=== PATIENT | female | born 1935 | race Caucasian/White ===

== ENCOUNTER 2020-05-11 14:35 | Inpatient (IN) ==
[2020-05-11] MEDS ORDERED: 0.9 % Sodium Chloride 1,000 ML IVC ONE (14:55)
[2020-05-11 15:15] LABS: Basophils # 0.1 K/mcL (0.0-0.2); Basophils % 0.3 %; Eosinophils % 0.1 %; Hematocrit 42.9 % (35.3-44.9); Hemoglobin 13.8 g/dL (11.5-15.4); Immature Granulocytes % 0.9 % (0-4); Lymphocytes # 2.3 K/mcL (0.6-4.6); Lymphocytes % 14.3 %; Mean Corpuscular HGB Conc 32.2 g/dL (31.6-35.5); Mean Corpuscular Volume 93.3 fL (83.0-100.0); Mean Platelet Volume 9.6 fL (9.4-12.4); Monocytes # 1.6 K/mcL (0.0-1.3); Monocytes % 10.2 %; Neutrophils # 11.7 K/mcL (1.6-8.9); Nucleated Red Blood Cells 0.2 /100 WBC (0); Platelet Count 503 K/mcL (140-400); Red Cell Distribution Width 14.8 % (11.5-14.5); Segmented Neutrophils % 74.2 %; White Blood Count 15.8 K/mcL (4.3-11.1)
[2020-05-11] MEDS: DilTIAZem 50 MG/50 ML IV.SOLN IVC SCH ×2 (15:43→22:58)
[2020-05-11 15:50] LABS: Alanine Aminotransferase 26 Units/L (7-52); Albumin 2.9 g/dL (3.5-5.7); Alkaline Phosphatase 74 Units/L (34-104); Aspartate Amino Transferase 22 Units/L (13-39); BUN/Creatinine Ratio 19 (6-26); Bilirubin,Total 1.5 mg/dL (0.3-1.0); Blood Urea Nitrogen 19 mg/dL (8-23); Calcium 8.9 mg/dL (8.6-10.3); Carbon Dioxide 23 mEq/L (23-29); Chloride 103 mEq/L (98-107); Glucose 119 mg/dL (70-105); Osmolality,Calculated 281 (280-300); Sodium 134 mEq/L (136-145); Thyroid Stimulating Hormone 1.614 mcIU/mL (0.340-5.600); Troponin I < 0.03 ng/mL (< 0.04); eGFR For African Americans > 60 (> 60); eGFR For Non-African Americans 54 (> 60)
[2020-05-11 16:03] LABS: Bilirubin,Urine Small (Negative); Blood,Urine Negative (Negative); Clarity,Urine Turbid (Clear); Color,Urine Yellow (Yellow); Glucose,Urine (UA) Normal (Normal); Ketones,Urine Negative (Negative); Leukocyte Esterase,Urine Negative (Negative); Nitrite,Urine Negative (Negative); PH,Urine 5.5 pH Units (5.0-8.0); Protein,Urine Trace mg/dL (Neg-Trace); Specific Gravity,Urine 1.027 (1.010-1.025); Urobilinogen,Urine >=8.0 mg/dL (Normal)
[2020-05-11 16:15] LABS: Calcium Oxalate Crystals,Urine Present; Hyaline Casts,Urine Many per lpf (None Seen); Mucus,Urine Many per lpf (None-Few); RBC,Urine 0-3 per hpf (0-3); Squamous Epithelial Cell,Urine Many per hpf (None-Few)
[2020-05-11 16:17] LABS: Bacteria,Urine Few per hpf (None-Few)
[2020-05-11 16:59] LABS: Albumin/Globulin Ratio 0.7 (1.1-2.2); Globulin 3.9 g/dL (2.4-3.5); Total Protein 6.8 g/dL (6.4-8.9)
[2020-05-11] MEDS ORDERED: Naloxone 0.4 MG/ML INJ IVP PRN (17:10)
[2020-05-11] MEDS ORDERED: Perflutren Lipid Microsphere 1.3 ML in 0.9 % Sodium Chloride 8.7 ML IVP PRN (17:49)
[2020-05-11] MEDS ORDERED: *HR* Rivaroxaban 10 MG TABLET PO SCH (19:00)
[2020-05-11] MEDS: Gabapentin 100 MG CAPSULE PO SCH (19:29)
[2020-05-12 02:41] LABS: Basophils % 0.3 %; Eosinophils % 0.1 %; Hematocrit 40.5 % (35.3-44.9); Immature Granulocytes % 0.9 % (0-4); Lymphocytes % 14.7 %; Mean Corpuscular HGB Conc 32.1 g/dL (31.6-35.5); Mean Corpuscular Hemoglobin 30.6 pg (28.0-33.3); Mean Corpuscular Volume 95.3 fL (83.0-100.0); Mean Platelet Volume 10.3 fL (9.4-12.4); Monocytes # 1.6 K/mcL (0.0-1.3); Monocytes % 11.5 %; Nucleated Red Blood Cells 0.3 /100 WBC (0); Platelet Count 440 K/mcL (140-400); Red Blood Count 4.25 M/mcL (3.82-4.97); Red Cell Distribution Width 14.6 % (11.5-14.5); Segmented Neutrophils % 72.5 %; White Blood Count 13.9 K/mcL (4.3-11.1)
[2020-05-12 02:58] LABS: BUN/Creatinine Ratio 21 (6-26); Blood Urea Nitrogen 18 mg/dL (8-23); Calcium 8.6 mg/dL (8.6-10.3); Carbon Dioxide 22 mEq/L (23-29); Chloride 105 mEq/L (98-107); Chol/HDL Ratio 5.2 (0-4.9); Glucose 103 mg/dL (70-105); Magnesium 2.1 mg/dL (1.6-2.6); Osmolality,Calculated 284 (280-300); Phosphorous 2.9 mg/dL (2.7-4.5); Potassium 3.9 mEq/L (3.5-5.1); Sodium 136 mEq/L (136-145); eGFR For African Americans > 60 (> 60); eGFR For Non-African Americans > 60 (> 60)
[2020-05-12] MEDS: DilTIAZem 50 MG/50 ML IV.SOLN IVC SCH ×4 (03:18→19:25)
[2020-05-12 07:43] LABS: Estimated Average Glucose 123 mg/dl; Hemoglobin A1C 5.9 %
[2020-05-12] MEDS ORDERED: lisinopriL 20 MG TABLET PO SCH (09:00)
[2020-05-12] MEDS: Cyanocobalamin (B-12) 1,000 MCG TABLET PO SCH (10:10)
[2020-05-12 11:15] LABS: Adenovirus Not Detected (Not Detect); Bordetella Pertussis Not Detected (Not Detect); Chlamydophila pneumoniae Not Detected (Not Detect); Coronavirus 229E Not Detected (Not Detect); Coronavirus HKU1 Not Detected (Not Detect); Coronavirus NL63 Not Detected (Not Detect); Coronavirus OC43 Not Detected (Not Detect); Human Metapneumovirus Not Detected (Not Detect); Human Rhinovirus/Enterovirus Not Detected (Not Detect); Influenza A Subtype 2009 H1 Not Detected (Not Detect); Influenza B Not Detected (Not Detect); Mycoplasma pneumoniae Not Detected (Not Detect); Parainfluenza Virus 1 Not Detected (Not Detect); Parainfluenza Virus 2 Not Detected (Not Detect); Parainfluenza Virus 3 Not Detected (Not Detect); Parainfluenza Virus 4 Not Detected (Not Detect); Respiratory Syncytial Virus Not Detected (Not Detect); SARS-CoV-2 Not Detected (Not Detect)
[2020-05-12 16:06] LABS: INR 2.5
[2020-05-12] MEDS ORDERED: 0.9 % Sodium Chloride 250 ML ONE (20:06)
[2020-05-12] MEDS: Gabapentin 100 MG CAPSULE PO SCH (20:33)
[2020-05-12] MEDS: cefTRIAXone 1,000 MG in Water for inj. (sterile) 10 ML IVP SCH (23:18)
[2020-05-13] MEDS ORDERED: *HR* LORazepam 0.5 MG TABLET PO ONE
[2020-05-13] MEDS: DilTIAZem 50 MG/50 ML IV.SOLN IVC SCH ×6 (00:34→23:38)
[2020-05-13 05:08] LABS: Basophils % 0.3 %; Eosinophils % 0.3 %; Hematocrit 39.4 % (35.3-44.9); Hemoglobin 12.3 g/dL (11.5-15.4); Immature Granulocytes % 1.1 % (0-4); Lymphocytes # 1.2 K/mcL (0.6-4.6); Lymphocytes % 9.3 %; Mean Corpuscular HGB Conc 31.2 g/dL (31.6-35.5); Mean Corpuscular Hemoglobin 30.1 pg (28.0-33.3); Mean Corpuscular Volume 96.6 fL (83.0-100.0); Mean Platelet Volume 9.7 fL (9.4-12.4); Monocytes # 1.5 K/mcL (0.0-1.3); Monocytes % 11.5 %; Neutrophils # 10.2 K/mcL (1.6-8.9); Nucleated Red Blood Cells 0.4 /100 WBC (0); Platelet Count 390 K/mcL (140-400); Red Blood Count 4.08 M/mcL (3.82-4.97); Red Cell Distribution Width 14.8 % (11.5-14.5); Segmented Neutrophils % 77.5 %; White Blood Count 13.2 K/mcL (4.3-11.1)
[2020-05-13 05:16] LABS: INR 1.5; Prothrombin Time 17.2 Seconds (9.4-12.1)
[2020-05-13 05:18] LABS: Activated Partial Thrombo Time 29.7 Seconds (26.0-36.0)
[2020-05-13 05:31] LABS: Alanine Aminotransferase 22 Units/L (7-52); Albumin 2.9 g/dL (3.5-5.7); Albumin/Globulin Ratio 0.9 (1.1-2.2); Alkaline Phosphatase 67 Units/L (34-104); Aspartate Amino Transferase 13 Units/L (13-39); BUN/Creatinine Ratio 20 (6-26); Bilirubin,Total 1.1 mg/dL (0.3-1.0); Blood Urea Nitrogen 17 mg/dL (8-23); Calcium 8.8 mg/dL (8.6-10.3); Carbon Dioxide 24 mEq/L (23-29); Chloride 105 mEq/L (98-107); Globulin 3.3 g/dL (2.4-3.5); Glucose 130 mg/dL (70-105); Osmolality,Calculated 287 (280-300); Potassium 3.7 mEq/L (3.5-5.1); Sodium 137 mEq/L (136-145); Total Protein 6.2 g/dL (6.4-8.9); eGFR For African Americans > 60 (> 60); eGFR For Non-African Americans > 60 (> 60)
[2020-05-13] MEDS ORDERED: Albuterol 2.5 MG/3 ML NEBULIZER IH PRN (08:23)
[2020-05-13] MEDS ORDERED: Albuterol 2.5 MG/3 ML NEBULIZER ONE (08:24)
[2020-05-13] MEDS: Ipratropium/Albuterol Neb 3 ML IH SCH ×4 (08:47→20:17)
[2020-05-13] MEDS: cefTRIAXone 1,000 MG in Water for inj. (sterile) 10 ML IVP SCH (09:16)
[2020-05-13] MEDS ORDERED: *HR* Succinylcholine 200 MG/10 ML VIAL IVP ONE (09:17)
[2020-05-13] MEDS ORDERED: Ondansetron 4 MG/2 ML VIAL ONE (09:17)
[2020-05-13] MEDS ORDERED: *HR* Etomidate 40 MG/20 ML VIAL IVP ONE (09:17)
[2020-05-13] MEDS ORDERED: Dexamethasone 4 MG/ML VIAL ONE (09:17)
[2020-05-13] MEDS ORDERED: Lidocaine -MPF 2% 2 ML VIAL ONE ×2 (09:17→09:26)
[2020-05-13] MEDS ORDERED: Lidocaine -MPF 4% 5 ML AMPUL ONE (09:18)
[2020-05-13] MEDS ORDERED: *HR* FentaNYL (PF) 100 MCG/2 ML VIAL ONE (09:19)
[2020-05-13] MEDS: Cyanocobalamin (B-12) 1,000 MCG TABLET PO SCH (09:24)
[2020-05-13] MEDS ORDERED: Lidocaine 1% 20 ML MDV ONE (10:08)
[2020-05-13] MEDS ORDERED: *HR* Rocuronium Bromide 50 MG/5 ML VIAL ONE (10:37)
[2020-05-13] MEDS ORDERED: *HR* HYDROcodone/Acet 5/325 mg TABLET PO PRN (11:18)
[2020-05-13] MEDS: Gabapentin 300 MG CAPSULE PO SCH ×2 (16:06→20:32)
[2020-05-13] MEDS: Gabapentin 100 MG CAPSULE PO SCH (20:33)
[2020-05-14] MEDS: Ipratropium/Albuterol Neb 3 ML IH SCH ×7 (00:06→23:27)
[2020-05-14] MEDS: DilTIAZem 50 MG/50 ML IV.SOLN IVC SCH ×4 (03:14→15:45)
[2020-05-14 04:52] LABS: Basophils % 0.1 %; Hematocrit 40.6 % (35.3-44.9); Hemoglobin 12.7 g/dL (11.5-15.4); Immature Granulocytes % 0.7 % (0-4); Lymphocytes # 0.4 K/mcL (0.6-4.6); Lymphocytes % 2.8 %; Mean Corpuscular HGB Conc 31.3 g/dL (31.6-35.5); Mean Corpuscular Hemoglobin 30.1 pg (28.0-33.3); Mean Corpuscular Volume 96.2 fL (83.0-100.0); Mean Platelet Volume 9.6 fL (9.4-12.4); Monocytes # 1.1 K/mcL (0.0-1.3); Monocytes % 6.9 %; Neutrophils # 13.9 K/mcL (1.6-8.9); Nucleated Red Blood Cells 0.2 /100 WBC (0); Platelet Count 375 K/mcL (140-400); Red Blood Count 4.22 M/mcL (3.82-4.97); Segmented Neutrophils % 89.5 %; White Blood Count 15.5 K/mcL (4.3-11.1)
[2020-05-14 05:19] LABS: BUN/Creatinine Ratio 21 (6-26); Blood Urea Nitrogen 21 mg/dL (8-23); Calcium 8.6 mg/dL (8.6-10.3); Carbon Dioxide 24 mEq/L (23-29); Chloride 106 mEq/L (98-107); Glucose 162 mg/dL (70-105); Osmolality,Calculated 295 (280-300); Potassium 4.3 mEq/L (3.5-5.1); Sodium 139 mEq/L (136-145); eGFR For African Americans > 60 (> 60); eGFR For Non-African Americans 52 (> 60)
[2020-05-14] MEDS: Gabapentin 100 MG CAPSULE PO SCH ×3 (10:10→20:11)
[2020-05-14] MEDS: Cyanocobalamin (B-12) 1,000 MCG TABLET PO SCH (10:11)
[2020-05-14] MEDS ORDERED: 0.9 % Sodium Chloride 1,000 ML ONE (11:28)
[2020-05-14] MEDS ORDERED: 0.9 % Sodium Chloride 1,000 ML IVC SCH ×2 (11:30→15:03)
[2020-05-14] MEDS ORDERED: Naloxone 0.4 MG/ML INJ IVP PRN (15:03)
[2020-05-14] MEDS ORDERED: Albuterol 2.5 MG/3 ML NEBULIZER IH PRN (15:03)
[2020-05-14 17:33] LABS: Nucleated Red Blood Cells 0.1 /100 WBC (0); Red Blood Count 4.47 M/mcL (3.82-4.97); Red Cell Distribution Width 15.3 % (11.5-14.5)
[2020-05-14 17:34] LABS: Basophils % 0.1 %; Hematocrit 43.9 % (35.3-44.9); Hemoglobin 13.6 g/dL (11.5-15.4); Immature Granulocytes % 0.8 % (0-4); Lymphocytes # 0.8 K/mcL (0.6-4.6); Lymphocytes % 2.8 %; Mean Corpuscular Hemoglobin 30.4 pg (28.0-33.3); Mean Corpuscular Volume 98.2 fL (83.0-100.0); Mean Platelet Volume 9.4 fL (9.4-12.4); Monocytes # 2.3 K/mcL (0.0-1.3); Monocytes % 8.3 %; Platelet Count 356 K/mcL (140-400); White Blood Count 27.3 K/mcL (4.3-11.1)
[2020-05-14 17:53] LABS: Albumin 2.8 g/dL (3.5-5.7); Albumin/Globulin Ratio 0.8 (1.1-2.2); Bilirubin,Total 0.7 mg/dL (0.3-1.0); Calcium 8.9 mg/dL (8.6-10.3); Globulin 3.5 g/dL (2.4-3.5); Total Protein 6.3 g/dL (6.4-8.9)
[2020-05-14 18:00] LABS: Platelet Estimate Normal (Normal); Toxic Granulation Present (Not Present)
[2020-05-14] MEDS: 0.9 % Sodium Chloride 1,000 ML IVC SCH (18:02)
[2020-05-15] MEDS: DilTIAZem 50 MG/50 ML IV.SOLN IVC SCH ×5 (00:49→21:51)
[2020-05-15] MEDS: 0.9 % Sodium Chloride 1,000 ML IVC SCH (00:50)
[2020-05-15] MEDS: Ipratropium/Albuterol Neb 3 ML IH SCH ×6 (03:40→23:30)
[2020-05-15 05:57] LABS: Basophils % 0.2 %; Nucleated Red Blood Cells 0.1 /100 WBC (0)
[2020-05-15 05:58] LABS: Basophils # 0.1 K/mcL (0.0-0.2); Hematocrit 46.1 % (35.3-44.9); Hemoglobin 14.6 g/dL (11.5-15.4); Immature Granulocytes % 1.1 % (0-4); Lymphocytes # 0.7 K/mcL (0.6-4.6); Lymphocytes % 2.3 %; Mean Corpuscular HGB Conc 31.7 g/dL (31.6-35.5); Mean Corpuscular Hemoglobin 30.7 pg (28.0-33.3); Mean Corpuscular Volume 97.1 fL (83.0-100.0); Mean Platelet Volume 9.5 fL (9.4-12.4); Monocytes # 2.4 K/mcL (0.0-1.3); Monocytes % 8.5 %; Neutrophils # 24.9 K/mcL (1.6-8.9); Platelet Count 385 K/mcL (140-400); Red Blood Count 4.75 M/mcL (3.82-4.97); Red Cell Distribution Width 15.7 % (11.5-14.5); Segmented Neutrophils % 87.9 %; White Blood Count 28.3 K/mcL (4.3-11.1)
[2020-05-15 06:22] LABS: Anisocytosis 1+ (Not Present); Platelet Estimate Normal (Normal); Toxic Granulation Present (Not Present)
[2020-05-15 06:23] LABS: Potassium 4.4 mEq/L (3.5-5.1)
[2020-05-15] MEDS: Gabapentin 100 MG CAPSULE PO SCH ×3 (07:55→21:50)
[2020-05-15] MEDS: Cyanocobalamin (B-12) 1,000 MCG TABLET PO SCH (07:55)
[2020-05-15] MEDS ORDERED: 0.9 % Sodium Chloride 500 ML IVC SCH (08:30)
[2020-05-15] MEDS ORDERED: DilTIAZem CD (24hr) 120 MG CAP.ER.24H PO SCH (09:00)
[2020-05-15] MEDS: Piperacillin/Tazobactam 3.375 GM in 0.9 % Sodium Chloride Mini Bag 100 ML IVPB SCH ×2 (17:07→23:34)
[2020-05-15] MEDS ORDERED: *HR* Metoprolol 5 MG/5 ML VIAL IVP PRN (18:00)
[2020-05-16] MEDS: DilTIAZem 50 MG/50 ML IV.SOLN IVC SCH ×2 (01:30→07:42)
[2020-05-16] MEDS: Ipratropium/Albuterol Neb 3 ML IH SCH ×6 (03:23→23:47)
[2020-05-16 05:53] LABS: Basophils % 0.2 %; Immature Granulocytes % 1.4 % (0-4)
[2020-05-16 05:55] LABS: Basophils # 0.1 K/mcL (0.0-0.2); Hematocrit 47.9 % (35.3-44.9); Hemoglobin 14.6 g/dL (11.5-15.4); Lymphocytes % 2.8 %; Mean Corpuscular HGB Conc 30.5 g/dL (31.6-35.5); Mean Corpuscular Hemoglobin 29.7 pg (28.0-33.3); Mean Corpuscular Volume 97.4 fL (83.0-100.0); Mean Platelet Volume 9.7 fL (9.4-12.4); Monocytes # 2.9 K/mcL (0.0-1.3); Monocytes % 8.3 %; Neutrophils # 30.1 K/mcL (1.6-8.9); Platelet Count 301 K/mcL (140-400); Red Blood Count 4.92 M/mcL (3.82-4.97); Red Cell Distribution Width 15.4 % (11.5-14.5); Segmented Neutrophils % 87.3 %
[2020-05-16 06:05] LABS: White Blood Count 34.5 K/mcL (4.3-11.1)
[2020-05-16 06:11] LABS: Calcium 9.4 mg/dL (8.6-10.3); Potassium 4.2 mEq/L (3.5-5.1)
[2020-05-16] MEDS: Piperacillin/Tazobactam 3.375 GM in 0.9 % Sodium Chloride Mini Bag 100 ML IVPB SCH ×2 (07:35→15:32)
[2020-05-16] MEDS: Gabapentin 100 MG CAPSULE PO SCH ×3 (07:35→20:54)
[2020-05-16] MEDS: DilTIAZem CD (24hr) 180 MG CAP.ER.24H PO SCH (07:36)
[2020-05-16] MEDS: Cyanocobalamin (B-12) 1,000 MCG TABLET PO SCH (07:36)
[2020-05-16] MEDS: 0.9 % Sodium Chloride 1,000 ML IVC SCH ×2 (08:00→15:31)
[2020-05-16] MEDS ORDERED: 0.9 % Sodium Chloride 1,000 ML ONE (08:02)
[2020-05-16] MEDS: Doxycycline 100 MG in 0.9 % Sodium Chloride Mini Bag 100 ML IVPB SCH ×2 (10:05→18:24)
[2020-05-16] MEDS ORDERED: Albumin 25% 25gram/100mL 25 GM/100 ML IV.SOLN IVPB ONE (18:39)
[2020-05-16 19:33] LABS: Basophils % 0.2 %; Platelet Count 276 K/mcL (140-400)
[2020-05-16 19:35] LABS: Basophils # 0.1 K/mcL (0.0-0.2); Hematocrit 51.2 % (35.3-44.9); Hemoglobin 15.4 g/dL (11.5-15.4); Immature Granulocytes % 1.7 % (0-4); Lymphocytes # 1.2 K/mcL (0.6-4.6); Lymphocytes % 3.3 %; Mean Corpuscular HGB Conc 30.1 g/dL (31.6-35.5); Mean Corpuscular Hemoglobin 30.1 pg (28.0-33.3); Mean Platelet Volume 9.5 fL (9.4-12.4); Monocytes # 2.5 K/mcL (0.0-1.3); Red Blood Count 5.12 M/mcL (3.82-4.97); Red Cell Distribution Width 15.4 % (11.5-14.5); Segmented Neutrophils % 87.8 %
[2020-05-16 19:36] LABS: Neutrophils # 30.7 K/mcL (1.6-8.9)
[2020-05-16 19:40] LABS: ABG Base Excess -2 mEq/L (-2 to 3); ABG HCO3 25 mEq/L (21-27); ABG Oxygen Saturation 93 % (95-98); ABG PCO2 53 mmHg (35-45); ABG PH 7.29 pH Units (7.32-7.45); ABG PO2 76 mmHg (85-104); ABG TCO2 27 mEq/L (20-26)
[2020-05-16 19:52] LABS: Calcium 9.2 mg/dL (8.6-10.3); Potassium 4.2 mEq/L (3.5-5.1)
[2020-05-16 19:56] LABS: Platelet Estimate Normal (Normal)
[2020-05-16] MEDS ORDERED: Acetaminophen IV 1,000 MG/100 ML BAG IVPB ONE (20:20)
[2020-05-17] MEDS: 0.9 % Sodium Chloride 1,000 ML IVC SCH (00:17)
[2020-05-17] MEDS: Piperacillin/Tazobactam 3.375 GM in 0.9 % Sodium Chloride Mini Bag 100 ML IVPB SCH ×4 (00:17→23:47)
[2020-05-17] MEDS: Ipratropium/Albuterol Neb 3 ML IH SCH ×6 (03:31→23:22)
[2020-05-17] MEDS ORDERED: Furosemide 20 MG/2 ML VIAL IVP ONE (04:02)
[2020-05-17 04:03] LABS: ABG Base Excess -4 mEq/L (-2 to 3); ABG HCO3 25 mEq/L (21-27); ABG Oxygen Saturation 90 % (95-98); ABG PCO2 60 mmHg (35-45); ABG PH 7.23 pH Units (7.32-7.45); ABG PO2 71 mmHg (85-104); ABG TCO2 27 mEq/L (20-26)
[2020-05-17 04:25] LABS: VBG Ionized Calcium 0.85 mmol/L (1.15-1.35)
[2020-05-17 04:27] LABS: Basophils % 0.2 %
[2020-05-17 04:28] LABS: Basophils # 0.1 K/mcL (0.0-0.2); Hematocrit 47.1 % (35.3-44.9); Immature Granulocytes % 1.5 % (0-4); Lymphocytes # 1.4 K/mcL (0.6-4.6); Lymphocytes % 4.3 %; Mean Corpuscular HGB Conc 29.7 g/dL (31.6-35.5); Mean Corpuscular Hemoglobin 29.8 pg (28.0-33.3); Mean Corpuscular Volume 100.2 fL (83.0-100.0); Mean Platelet Volume 9.6 fL (9.4-12.4); Monocytes # 2.3 K/mcL (0.0-1.3); Monocytes % 6.9 %; Neutrophils # 28.4 K/mcL (1.6-8.9); Platelet Count 260 K/mcL (140-400); Red Cell Distribution Width 15.3 % (11.5-14.5); Segmented Neutrophils % 87.1 %
[2020-05-17 04:39] LABS: White Blood Count 32.6 K/mcL (4.3-11.1)
[2020-05-17 04:40] LABS: Albumin 3.1 g/dL (3.5-5.7); Bilirubin,Total 0.8 mg/dL (0.3-1.0); Calcium 8.8 mg/dL (8.6-10.3); Magnesium 2.2 mg/dL (1.6-2.6); Phosphorous 3.9 mg/dL (2.7-4.5); Potassium 4.2 mEq/L (3.5-5.1); Total Protein 6.1 g/dL (6.4-8.9)
[2020-05-17] MEDS ORDERED: Calcium Gluconate 1gm/50mL 1 GM/50 ML BAG IVPB PRN (05:00)
[2020-05-17 05:03] LABS: Platelet Estimate Normal (Normal)
[2020-05-17] MEDS: Doxycycline 100 MG in 0.9 % Sodium Chloride Mini Bag 100 ML IVPB SCH ×2 (05:41→17:36)
[2020-05-17] MEDS: DilTIAZem CD (24hr) 180 MG CAP.ER.24H PO SCH (08:42)
[2020-05-17] MEDS: Cyanocobalamin (B-12) 1,000 MCG TABLET PO SCH (08:42)
[2020-05-17] MEDS: Gabapentin 100 MG CAPSULE PO SCH ×3 (08:42→20:24)
[2020-05-17 09:32] LABS: Bilirubin,Urine Negative (Negative); Blood,Urine Negative (Negative); Budding Yeast,Urine Many per hpf (None Seen); Clarity,Urine Turbid (Clear); Color,Urine Light-Yellow (Yellow); Glucose,Urine (UA) Normal (Normal); Hyaline Casts,Urine Moderate per lpf (None Seen); Ketones,Urine Negative (Negative); Leukocyte Esterase,Urine Large (Negative); Mucus,Urine Few per lpf (None-Few); Nitrite,Urine Negative (Negative); PH,Urine 5.5 pH Units (5.0-8.0); Protein,Urine Negative (Neg-Trace); Specific Gravity,Urine 1.012 (1.010-1.025); Squamous Epithelial Cell,Urine Few per hpf (None-Few); Transitional Epi Cells,Urine Few per hpf (None-Few); Urobilinogen,Urine Normal (Normal); WBC,Urine 30-50 per hpf (0-3)
[2020-05-17 09:35] LABS: ABG Base Excess -4 mEq/L (-2 to 3); ABG HCO3 23 mEq/L (21-27); ABG Oxygen Saturation 100 % (95-98); ABG PCO2 44 mmHg (35-45); ABG PH 7.32 pH Units (7.32-7.45); ABG PO2 183 mmHg (85-104); ABG TCO2 24 mEq/L (20-26)
[2020-05-17 11:04] LABS: Adenovirus Not Detected (Not Detect); Bordetella Pertussis Not Detected (Not Detect); Chlamydophila pneumoniae Not Detected (Not Detect); Coronavirus 229E Not Detected (Not Detect); Coronavirus HKU1 Not Detected (Not Detect); Coronavirus NL63 Not Detected (Not Detect); Coronavirus OC43 Not Detected (Not Detect); Human Metapneumovirus Not Detected (Not Detect); Human Rhinovirus/Enterovirus Not Detected (Not Detect); Influenza A Subtype 2009 H1 Not Detected (Not Detect); Influenza B Not Detected (Not Detect); Mycoplasma pneumoniae Not Detected (Not Detect); Parainfluenza Virus 1 Not Detected (Not Detect); Parainfluenza Virus 2 Not Detected (Not Detect); Parainfluenza Virus 3 Not Detected (Not Detect); Parainfluenza Virus 4 Not Detected (Not Detect); Respiratory Syncytial Virus Not Detected (Not Detect); SARS-CoV-2 Not Detected (Not Detect)
[2020-05-17] MEDS ORDERED: 0.9 % Sodium Chloride 1,000 ML ONE (11:48)
[2020-05-17] MEDS ORDERED: Albumin Human 5% 12.5 GM/250 ML IV.SOLN IVPB ONE (11:50)
[2020-05-17] MEDS: Phenylephrine 10 MG in 0.9 % Sodium Chloride 250 ML IVC SCH ×2 (12:20→13:58)
[2020-05-17] MEDS: Dexmedetomidine HCl 400 MCG/100 ML MLS IVC SCH (12:47)
[2020-05-17] MEDS: FentaNYL (PF) 1,000 MCG/100 ML IV.SOLN IVC SCH ×2 (12:47→19:30)
[2020-05-17] MEDS ORDERED: Artificial Tears SOLN 15 ML BOTTLE BOTH EYES PRN (13:10)
[2020-05-17] MEDS: Phenylephrine 50 MG in 0.9 % Sodium Chloride 250 ML IVC SCH (13:45)
[2020-05-17 15:10] LABS: ABG Base Excess -3 mEq/L (-2 to 3); ABG HCO3 22 mEq/L (21-27); ABG Oxygen Saturation 100 % (95-98); ABG PCO2 38 mmHg (35-45); ABG PH 7.36 pH Units (7.32-7.45); ABG PO2 201 mmHg (85-104); ABG TCO2 23 mEq/L (20-26); Blood Gas VT 400 cc
[2020-05-17] MEDS ORDERED: *HR* Propofol 200 MG/20 ML VIAL IVP ONE (15:59)
[2020-05-17] MEDS ORDERED: *HR* Etomidate 20 MG/10 ML AMPUL IVP ONE (15:59)
[2020-05-17] MEDS ORDERED: *HR* Midazolam HCl 2 MG/2 ML VIAL IVP ONE (15:59)
[2020-05-17] MEDS: Chlorhexidine Rinse 15 ML MOUTHWASH MM SCH ×2 (17:53→20:24)
[2020-05-17] MEDS: Artificial Tears SOLN 15 ML BOTTLE BOTH EYES SCH ×3 (17:53→23:47)
[2020-05-17] MEDS ORDERED: *HR* Dextrose 50 % in Water (Vial) 50 ML VIAL IVP PRN (21:52)
[2020-05-17] MEDS ORDERED: D5% in Water 1,000 ML IVC PRN (21:52)
[2020-05-17] MEDS ORDERED: Dextrose Gel 15 GM/37.5 ML TUBE PO PRN ×2 (21:52)
[2020-05-17] MEDS: Insulin LISPRO 300 UNITS/3 ML VIAL SUBQ SCH (23:47)
[2020-05-18] MEDS: Dexmedetomidine HCl 400 MCG/100 ML MLS IVC SCH (00:03)
[2020-05-18] MEDS: Phenylephrine 50 MG in 0.9 % Sodium Chloride 250 ML IVC SCH ×2 (02:30→09:16)
[2020-05-18] MEDS: Ipratropium/Albuterol Neb 3 ML IH SCH ×3 (03:19→11:42)
[2020-05-18 03:47] LABS: ABG Base Excess -8 mEq/L (-2 to 3); ABG HCO3 17 mEq/L (21-27); ABG Oxygen Saturation 98 % (95-98); ABG PCO2 32 mmHg (35-45); ABG PH 7.33 pH Units (7.32-7.45); ABG PO2 117 mmHg (85-104); ABG TCO2 18 mEq/L (20-26); Blood Gas Modality ASSIST CONTROL; Blood Gas VT 400 cc
[2020-05-18 04:33] LABS: Basophils # 0.1 K/mcL (0.0-0.2); Basophils % 0.3 %; Hemoglobin 15.3 g/dL (11.5-15.4); Immature Granulocytes % 2.1 % (0-4); Lymphocytes # 1.4 K/mcL (0.6-4.6); Lymphocytes % 5.8 %; Mean Corpuscular HGB Conc 30.6 g/dL (31.6-35.5); Mean Corpuscular Hemoglobin 30.6 pg (28.0-33.3); Mean Platelet Volume 10.2 fL (9.4-12.4); Monocytes % 7.9 %; Neutrophils # 20.9 K/mcL (1.6-8.9); Nucleated Red Blood Cells 0.1 /100 WBC (0); Platelet Count 218 K/mcL (140-400); Red Cell Distribution Width 15.5 % (11.5-14.5); Segmented Neutrophils % 83.9 %; White Blood Count 24.9 K/mcL (4.3-11.1)
[2020-05-18 04:34] LABS: VBG Ionized Calcium 1.17 mmol/L (1.15-1.35)
[2020-05-18 04:53] LABS: Magnesium 2.3 mg/dL (1.6-2.6); Phosphorous 4.8 mg/dL (2.7-4.5)
[2020-05-18 04:54] LABS: Calcium 9.3 mg/dL (8.6-10.3); Potassium 4.4 mEq/L (3.5-5.1)
[2020-05-18] MEDS ORDERED: Albumin 25% 25gram/100mL 25 GM/100 ML IV.SOLN IVPB ONE (05:15)
[2020-05-18] MEDS ORDERED: Vasopressin 40 UNIT in D5% in Water 100 ML IVC SCH (05:15)
[2020-05-18] MEDS ORDERED: Albumin 25% 25gram/100mL 25 GM/100 ML IV.SOLN ONE (05:17)
[2020-05-18] MEDS: Doxycycline 100 MG in 0.9 % Sodium Chloride Mini Bag 100 ML IVPB SCH (05:54)
[2020-05-18] MEDS: Artificial Tears SOLN 15 ML BOTTLE BOTH EYES SCH ×2 (06:34→07:41)
[2020-05-18] MEDS: Insulin LISPRO 300 UNITS/3 ML VIAL SUBQ SCH (06:35)
[2020-05-18] MEDS: Piperacillin/Tazobactam 3.375 GM in 0.9 % Sodium Chloride Mini Bag 100 ML IVPB SCH (07:40)
[2020-05-18] MEDS: Cyanocobalamin (B-12) 1,000 MCG TABLET PO SCH (07:40)
[2020-05-18] MEDS: Chlorhexidine Rinse 15 ML MOUTHWASH MM SCH (07:40)
[2020-05-18] MEDS ORDERED: Pantoprazole 40 MG VIAL IVP SCH (09:15)
[2020-05-18] MEDS: Gabapentin 100 MG CAPSULE PO SCH (09:16)
[2020-05-18] MEDS: DilTIAZem CD (24hr) 180 MG CAP.ER.24H PO SCH (09:17)
[2020-05-18] MEDS: FentaNYL (PF) 1,000 MCG/100 ML IV.SOLN IVC SCH (09:17)
[2020-05-18 09:20] LABS: ABG Base Excess -11 mEq/L (-2 to 3); ABG HCO3 15 mEq/L (21-27); ABG Oxygen Saturation 97 % (95-98); ABG PCO2 32 mmHg (35-45); ABG PH 7.27 pH Units (7.32-7.45); ABG PO2 101 mmHg (85-104); ABG TCO2 16 mEq/L (20-26); Blood Gas Modality ASSIST CONTROL; Blood Gas VT 400 cc
[2020-05-18] MEDS ORDERED: Budesonide/Formoterol 160/4.5 1 PUFF INH IH SCH (10:00)
[2020-05-18] MEDS ORDERED: Norepinephrine 4 MG/254 ML IV.SOLN IVC SCH (10:15)
[2020-05-18 10:33] LABS: Troponin I 0.04 ng/mL (< 0.04)
[2020-05-18] MEDS ORDERED: *HR* LORazepam 2 MG/ML VIAL IVP PRN (12:25)
[2020-05-18] MEDS ORDERED: Morphine Sulfate 2 MG/ML SYRINGE IVP PRN (12:25)
[2020-05-18] MEDS ORDERED: Haloperidol Lactate 5 MG/ML VIAL IVP PRN (12:25)
[2020-05-18] MEDS ORDERED: Ondansetron 4 MG/2 ML VIAL IVP PRN (12:25)
[2020-05-18] MEDS ORDERED: Acetaminophen 650 MG RECTAL SUPP RC PRN (12:25)
[2020-05-18] MEDS ORDERED: Hyoscyamine SL 0.125 MG TAB.SUBL SL PRN (12:25)
[2020-05-18] MEDS ORDERED: Hydrocortisone Sodium Succ 100 MG/2 ML VIAL IVP SCH ×2 (16:00)
[2020-05-18 17:32] VITALS: BP 88/56
== END 2020-05-18 16:00 | disposition expired | DRG 270 ==
LOC: EMEROOARM 14:35 → 3BNU 14:35 → ICNU 05-12 16:53
PROVIDERS: ADMIT Student in an Organized Health Care Education/Training Program; ATTEND Student in an Organized Health Care Education/Training Program